=== PATIENT | female | born 1965 | race African-American/Black ===

== ENCOUNTER 2021-11-08 07:02 | Day surgery (SDC) | payer OTHER ==
[2021-11-08 07:25] VITALS: BMI 32.0
[2021-11-08] MEDS ORDERED: ACETAMINOPHEN 1000 MG/100 ML VIAL IVPB ONE (07:37)
[2021-11-08] MEDS ORDERED: MAG HYDROX/AL HYDROX/SIMETH -MYLANTA- ORAL SUSPENSION PO ONE (07:38)
[2021-11-08] MEDS ORDERED: FAMOTIDINE 20 MG/50 ML IVPB 20 MG/50 ML MG IVPB ONE ×2 (07:38→07:55)
[2021-11-08] MEDS ORDERED: METOCLOPRAMIDE HCL INJECTION 10 MG/2 ML VIAL IVPB ONE (07:39)
[2021-11-08] MEDS ORDERED: LACTATED RINGERS SOLUTION 1000 ML INFUS.BAG IV ONE (07:40)
[2021-11-08] MEDS ORDERED: METOCLOPRAMIDE HCL INJECTION 10 MG/2 ML VIAL ONE (07:54)
[2021-11-08] MEDS ORDERED: ACETAMINOPHEN INJECTION 100 ML IVPB ONE ×3 (07:55→18:26)
[2021-11-08] MEDS ORDERED: MAG HYDROX/AL HYDROX/SIMETH 30 ML UNIT-DOSE CUP ONE (07:55)
[2021-11-08 08:19] LABS: BASO % 0.9 % (0-2.0); EOS % 0.1 % (0-4.5); HEMATOCRIT 40.2 % (32.4-45.2); LYMPH % 19.2 % (8-40); MCH 30.4 pg (25.7-33.7); MCHC 34.7 g/dl (32.0-36.0); MEAN CELL VOLUME 87.4 fl (80-96); MEAN PLT VOLUME 7.3 fl (7.5-11.1); MONO % 5.7 % (3.8-10.2); NEUT % 74.1 % (42.8-82.8); PLATELET COUNT 214 10^3/uL (134-434); RDW 13.6 % (11.6-15.6); WHITE BLOOD COUNT 9.6 K/mm3 (4.0-10.0)
[2021-11-08 08:28] LABS: INR 1.04 (0.83-1.09); PROTHROMBIN TIME (PATIENT) 11.6 SEC (9.7-13.0)
[2021-11-08 08:31] LABS: ACTIVATED PTT 26.5 SECONDS (25.2-36.5)
[2021-11-08 08:42] LABS: CHLORIDE 103 mmol/L (98-107); SODIUM 137 mmol/L (136-145)
[2021-11-08 08:45] LABS: ALBUMIN 3.9 g/dl (3.4-5.0); ANION GAP 14 MMOL/L (8-16); BLOOD UREA NITROGEN 10.2 mg/dL (7-18); CALCIUM 9.5 mg/dL (8.5-10.1); CO2 20 mmol/L (21-32); GLUCOSE,RANDOM 162 mg/dL (74-106); LIPASE 89 U/L (73-393)
[2021-11-08 08:47] LABS: SGPT/ALT 40 U/L (13-61)
[2021-11-08 08:48] LABS: SGOT/AST 29 U/L (15-37)
[2021-11-08 08:50] LABS: ALK PHOS 78 U/L (45-117); BILIRUBIN,TOTAL 0.6 mg/dL (0.2-1); TOT PROT 8.5 g/dl (6.4-8.2)
[2021-11-08] MEDS ORDERED: ONDANSETRON 4 MG/2 ML VIAL IVPUSH PRN ×3 (13:55→19:31)
[2021-11-08] MEDS ORDERED: ACETAMINOPHEN 1000 MG/100 ML VIAL IVPB SCH (14:00)
[2021-11-08] MEDS ORDERED: KETOROLAC TROMETHAMINE 30 MG/1 ML VIAL ONE (14:24)
[2021-11-08] MEDS ORDERED: KETOROLAC TROMETHAMINE 30 MG/1 ML VIAL IM ONE (14:26)
[2021-11-08] MEDS ORDERED: PROPOFOL 20 ML ONE (17:44)
[2021-11-08] MEDS ORDERED: ROCURONIUM BROMIDE 50 MG/5 ML SYRINGE ONE (17:44)
[2021-11-08] MEDS ORDERED: fentaNYL CITRATE 250 MCG/5 ML VIAL ONE (17:44)
[2021-11-08] MEDS ORDERED: MIDAZOLAM HCL 2 MG/2 ML SINGLE DOSE VIAL ONE (17:45)
[2021-11-08] MEDS ORDERED: SUCCINYLCHOLINE CHLORIDE 200 MG/10 ML SYRINGE ONE (17:45)
[2021-11-08] MEDS ORDERED: cefOXitin SODIUM 1 GM VIAL (RESTRICTED TO ID) IVPB ONE (18:05)
[2021-11-08] MEDS ORDERED: CEFOXITIN SODIUM 1 GM IVPB ONE (18:05)
[2021-11-08] MEDS ORDERED: oxyCODONE HCL 5 MG TABLET PO PRN ×2 (18:51→19:31)
[2021-11-08] MEDS ORDERED: PROMETHAZINE HCL 25 MG/1 ML VIAL IVPUSH PRN (19:31)
[2021-11-08] MEDS ORDERED: ACETAMINOPHEN 1000 MG/100 ML VIAL IVPB PRN (20:00)
[2021-11-08] MEDS: LACTATED RINGERS SOLUTION 1,000 ML IV SCH (20:52)
[2021-11-09] MEDS: oxyCODONE HCL 5 MG TABLET PO PRN ×2 (00:06→14:45)
[2021-11-09] MEDS: LACTATED RINGERS SOLUTION 1,000 ML IV SCH (00:27)
[2021-11-09] MEDS ORDERED: PROCHLORPERAZINE INJECTION 10 MG/2 ML VIAL IVPB ONE (01:00)
[2021-11-09] MEDS ORDERED: HYDROmorphone HCl 2 MG/ML VIAL IVPB ONE (01:53)
[2021-11-09] MEDS ORDERED: PT OWN MED DRAWER 7, Y5N ONE (05:36)
[2021-11-09] MEDS ORDERED: ceFAZolin 2 GRAM PREMIX BAG IVPB SCH (06:00)
[2021-11-09] MEDS: CEFAZOLIN 2 GM in SODIUM CHLORIDE 100 ML IVPB SCH ×3 (07:22→21:18)
[2021-11-09 09:44] LABS: BASO % 0.2 % (0-2.0); HEMOGLOBIN 12.9 GM/dL (10.7-15.3); LYMPH % 11.1 % (8-40); MCH 30.8 pg (25.7-33.7); MCHC 34.8 g/dl (32.0-36.0); MEAN CELL VOLUME 88.4 fl (80-96); MEAN PLT VOLUME 7.5 fl (7.5-11.1); MONO % 7.4 % (3.8-10.2); NEUT % 81.3 % (42.8-82.8); PLATELET COUNT 182 10^3/uL (134-434); RBC 4.18 M/mm3 (3.60-5.2); RDW 13.6 % (11.6-15.6); WHITE BLOOD COUNT 10.7 K/mm3 (4.0-10.0)
[2021-11-09 10:10] LABS: BLOOD UREA NITROGEN 9.3 mg/dL (7-18); CALCIUM 8.7 mg/dL (8.5-10.1)
[2021-11-09 10:12] LABS: ALBUMIN 3.1 g/dl (3.4-5.0)
[2021-11-09 10:13] LABS: CREATININE 0.9 mg/dL (0.55-1.3); PHOSPHOROUS 3.7 mg/dL (2.5-4.9)
[2021-11-09 10:15] LABS: BILIRUBIN,TOTAL 0.8 mg/dL (0.2-1); TOT PROT 7.1 g/dl (6.4-8.2)
[2021-11-09] MEDS: ACETAMINOPHEN 325 MG TABLET (FP) PO PRN (14:57)
[2021-11-09] MEDS ORDERED: ACETAMINOPHEN 1000 MG/100 ML VIAL IVPB PRN (15:50)
[2021-11-09] MEDS ORDERED: MELATONIN 5 MG TABLETS PO PRN (15:50)
[2021-11-10] MEDS: oxyCODONE HCL 5 MG TABLET PO PRN (03:44)
[2021-11-10 08:19] LABS: HEMATOCRIT 35.2 % (32.4-45.2); HEMOGLOBIN 12.2 GM/dL (10.7-15.3); MCHC 34.7 g/dl (32.0-36.0); MEAN CELL VOLUME 89.3 fl (80-96); MEAN PLT VOLUME 7.5 fl (7.5-11.1); PLATELET COUNT 176 10^3/uL (134-434); RBC 3.94 M/mm3 (3.60-5.2); RDW 13.6 % (11.6-15.6); WHITE BLOOD COUNT 8.7 K/mm3 (4.0-10.0)
[2021-11-10 08:31] LABS: TOT PROT 6.7 g/dl (6.4-8.2)
[2021-11-10 08:32] LABS: ALBUMIN 2.9 g/dl (3.4-5.0); BLOOD UREA NITROGEN 11.7 mg/dL (7-18); CREATININE 0.8 mg/dL (0.55-1.3)
[2021-11-10 08:33] LABS: CALCIUM 8.5 mg/dL (8.5-10.1); PHOSPHOROUS 2.1 mg/dL (2.5-4.9)
[2021-11-10 08:34] LABS: MAGNESIUM 2.1 mg/dL (1.8-2.4)
[2021-11-10] MEDS ORDERED: ENOXAPARIN NA (PORCINE) 40 MG/0.4 ML DISP.SYRIN SQ SCH (10:00)
[2021-11-10] MEDS: ACETAMINOPHEN 325 MG TABLET (FP) PO PRN (11:13)
[2021-11-10 13:56] VITALS: BP 98/66; PULSE 79; TEMP 98.6
== END 2021-11-10 17:45 | disposition home or self-care (01) ==
LOC: JER 07:02 → JERBED 13:22 → JASUSAT 13:22 → UNDOADMIN 13:22 → J5S 21:33 → JERBED 21:33 → JASUSAT 11-10 17:45
PROVIDERS: ATTEND Internal Medicine
PROC: 3E033GC Introduction of Other Therapeutic Substance into Peripheral Vein, Percutaneous Approach (ICD-10-PCS; principal; 2021-11-08 13:30)
DX: K80.20 Calculus of gallbladder without cholecystitis without obstruction (principal)
CPT/HCPCS: 36415; 71045-TC-FY; 74018-TC-FY; 76705-TC; 80053; 82550; 82553; 83690; 83735; 84100; 84443; 84484; 85025; 85027; 85610; 85730; 86850; 86900; 86901; 88304-TC; 93005; 93010; 94760; 97116-GP; 97161-GP; 99285-25; C9803; J0131; U0003; U0005